=== PATIENT | male | born 1945 | race Caucasian/White ===

== ENCOUNTER 2020-07-18 21:50 | Emergency (ER) | payer OTHER ==
[~2020-07-18] VITALS: Ht 177.8 cm; Wt 85.0 kg
[2020-07-18 23:49] LABS: BASOPHILS % 1.6 % (0.0-2.0); EOSINOPHILS % 2.2 % (0.0-5.0); HEMATOCRIT. 29.5 % (42.0-52.0); HEMOGLOBIN. 9.7 g/dL (14.0-18.0); LYMPHOCYTES % 21.5 % (20.0-50.0); MEAN CORPUSCULAR HEMOGLOBIN 29.1 pg (28.0-32.0); MEAN CORPUSCULAR VOLUME 88.1 fL (80.0-94.0); MEAN PLATELET VOLUME 8.5 fl (7.4-10.4); MONOCYTES % 14.1 % (2.0-8.0); NEUTROPHILS % 60.6 % (40.0-76.0); PLATELET 309 x1000/uL (130-400); RED BLOOD CELL COUNT 3.35 mill/uL (4.7-6.1); RED CELL DISTRIBUTION WIDTH 17.3 % (11.6-14.6)
[2020-07-18 23:57] LABS: CHLORIDE 98 mEq/L (98-107)
[2020-07-19 01:45] VITALS: BP 179/76
== END 2020-07-19 02:37 | disposition home or self-care (01) ==
LOC: ER 21:50
DX: I12.0 Hypertensive chronic kidney disease with stage 5 chronic kidney disease or end stage renal disease (principal); E11.22 Type 2 diabetes mellitus with diabetic chronic kidney disease; N18.6 End stage renal disease; E87.8 Other disorders of electrolyte and fluid balance, not elsewhere classified; R42 Dizziness and giddiness; Z99.2 Dependence on renal dialysis; Z98.890 Other specified postprocedural states
CPT/HCPCS: 36415; 80053; 84484; 85025; 99283

== ENCOUNTER 2024-05-21 18:26 | Emergency (ER) | payer OTHER ==
[~2024-05-21] VITALS: Ht 170.2 cm; Wt 110.0 kg
[2024-05-21 18:29] VITALS: BP 129/80; PULSE 82; RESP 16; TEMP 36.9; O2SAT 99
[2024-05-21 21:47] LABS: BASOPHILS % 1.1 % (0.0-2.0); EOSINOPHILS % 4.1 % (0.0-5.0); HEMATOCRIT. 26.9 % (42.0-52.0); LYMPHOCYTES % 16.3 % (20.0-50.0); MEAN CORPUSCULAR HEMOGLOBIN 31.5 pg (28.0-32.0); MEAN CORPUSCULAR HGB CONC 33.3 g/dL (31.0-37.0); MEAN CORPUSCULAR VOLUME 94.4 fL (80.0-94.0); MEAN PLATELET VOLUME 7.8 fl (7.4-10.4); MONOCYTES % 10.1 % (2.0-8.0); NEUTROPHILS % 68.4 % (40.0-76.0); PLATELET 194 x1000/uL (130-400); RED BLOOD CELL COUNT 2.85 mill/uL (4.7-6.1); RED CELL DISTRIBUTION WIDTH 16.9 % (11.6-14.6); WHITE BLOOD COUNT 4.8 x1000/uL (4.5-11.0)
[2024-05-21 21:50] LABS: CHLORIDE 96 mEq/L (98-107); POTASSIUM 4.2 mEq/L (3.5-5.1); SODIUM 137 mEq/L (136-145)
[2024-05-21 21:51] LABS: CALCIUM 9.1 mg/dL (8.7-10.4); CARBON DIOXIDE 32 mEq/L (21-32)
[2024-05-21 21:53] LABS: PROTHROMBIN TIME 10.7 sec (9.6-11.0)
[2024-05-21 21:54] LABS: TROPONIN I HIGH SENSITIVITY 43 ng/L (3.0-53)
[2024-05-21 21:56] LABS: GLUCOSE 285 mg/dL (70-105)
[2024-05-21 21:57] LABS: UREA NITROGEN BLOOD 35 mg/dL (9-23)
[2024-05-21 21:58] LABS: ALANINE AMINOTRANSFERASE 23 IU/L (10-49); ALBUMIN 3.8 g/dL (3.2-4.8); ASPARTATE AMINOTRANSFERASE 18 IU/L (<34); BILIRUBIN DIRECT 0.1 mg/dL (<=3.0)
[2024-05-21 21:59] LABS: BILIRUBIN TOTAL 0.3 mg/dL (0.1-1.0); PROTEIN TOTAL 6.2 g/dL (6.0-8.3)
[2024-05-21 22:07] LABS: CREATININE 5.5 mg/dL (0.6-1.3)
== END 2024-05-21 22:22 | disposition left against medical advice (07) ==
LOC: ER 18:26
DX: R42 Dizziness and giddiness (principal); E11.22 Type 2 diabetes mellitus with diabetic chronic kidney disease; E11.65 Type 2 diabetes mellitus with hyperglycemia; E78.5 Hyperlipidemia, unspecified; I12.0 Hypertensive chronic kidney disease with stage 5 chronic kidney disease or end stage renal disease; N18.6 End stage renal disease; Z99.2 Dependence on renal dialysis
CPT/HCPCS: 36415; 71045; 80048; 80076; 84484; 85025; 93005; 99285